=== PATIENT | female | born 1945 | race Caucasian/White ===

== ENCOUNTER 2023-05-26 16:43 | Emergency (ER) | payer MEDICARE, OTHER, SELFPAY ==
[2023-05-26] VITALS (14 sets, daily range): BP systolic 87–155; BP diastolic 40–102; PULSE 54–73; RESP 13–20; TEMP 36.3; O2SAT 93–100
--- NOTE | ~2023-05-26 | XR_ITS ---
EXAMINATION: XR chest 1V portable Exam Date/Time: 05/26/2023 17:15 EXAMINER RATING CLERK HISTORY: cp Comparison: None. RESULT: Lines, tubes, and devices: Uncomplicated left shoulder arthroplasty. Lungs and pleura: Senescent change. No focal consolidation, pleural effusion, or pneumothorax. Cardiomediastinal silhouette: Widening of the superior mediastinum is likely due to portable techniq ue and lordotic positioning and the prominent central pulmonary arteries, as can be seen with pulmona ry arterial hypertension. Apparent heart enlargement. Other: No acute osseous or upper abdominal finding. IMPRESSION: Findings suggestive of pulmonary arterial hypertension. Possible cardiomegaly. Reviewed, dictated and finalized at location K. INER RATING CLERK
--- NOTE | ~2023-05-26 | CT_ITS ---
EXAMINATION: CTA chest abdomen pelvis DATE: 05/26/2023 19:44 INDICATION: severe L CP, weakness, hypotension . TECHNIQUE: Computed tomography angiography (CTA) of the chest, abdomen, and pelvis was performed with 100 mL Omnipaque-350 intravenous contrast. Automated exposure control and iterative reconstruction t InPact.menique were employed. The dose-length product was 607.94 mGy-cm. COMPARISON: X-ray chest 05/26/2023 FINDINGS: CHEST: Thoracic aorta: Jan type A dissection beginning at the level of the aortic valve. The dissection flap extends into the brachiocephalic artery and the visualized portion of the right common carotid artery and minimally into the origin of the left common carotid artery. Lung parenchyma and airways: Mild septal thickening. Dependent scar/atelectasis.. Thoracic inlet, axillae and chest wall: No thyroid or soft tissue mass. No axillary lymphadenopathy. Mediastinum: No mass or lymphadenopathy. Prominent superior pericardial recess. Prominent central pul monary veins as can be seen with pulmonary arterial hypertension. Heart and pericardium: Mild cardiomegaly. No pericardial effusion. Suggestion of decreased subendocar dial, septal, and inferior wall enhancement. Coronary artery calcifications: Absent. Pleura: No effusion or mass. Thoracic bones: No acute osseous finding in the chest. Left shoulder arthroplasty hardware. ABDOMEN/PELVIS: Liver: Simple left lobe cyst. Biliary/Gallbladder: Gallbladder is normal. No bile duct dilation. Pancreas: No mass or duct dilation. Spleen: Wedge-shaped areas of hypoenhancement in the anterior and inferior spleen. Adrenals:Significantly decreased left adrenal enhancement. Decreased enhancement of the superior aspe ct of the right adrenal gland. Kidneys: Minimal arterial flow noted in the left kidney. Normal right kidney. GI tract: Small hiatal hernia. No small or large bowel dilation. The appendix is not confidently visu alized. Mesentery/Peritoneum: No ascites, mass, or free air. Retroperitoneum: No mass . The dissection extends into the midportion of the left external iliac arthur ry. There is at least moderate stenosis of the celiac axis, slightly decreased distal flow. Near-comp lete occlusion of the left renal artery, reconstitution of partial flow in the midportion of the arthur ry, with minimal arterial flow into the left kidney. Beaded appearance of the right mid renal artery. The dissection flap causes severe stenosis of the origin of the left common iliac artery, mildly red uced flow in the left common iliac artery, moderately reduced flow in the left external iliac artery, and left common femoral artery, and slightly reduced flow in the left internal iliac artery. Pelvis: Partially distended urinary bladder. Absent uterus. Normal ovaries. Soft Tissues: Small fat-containing uncomplicated umbilical and bilateral inguinal hernias. Abdominopelvic bones: No acute osseous finding in the abdomen/pelvis. IMPRESSION: Jan A type aortic dissection. Distally the flap appears to terminate at the midportion of the le ft external iliac artery. The dissection flap extends cephalad into the right brachiocephalic and common carotid artery, beyond the limits of the [id number]. Minimal extension into the proximal first centimeter of the left co mmon carotid artery. 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 Abnormal left ventricular muscle enhancement may represent myocardial ischemia/infarction. Mild pulmonary edema. Beaded appearance of the right renal artery as can be seen
--- NOTE | 2023-05-26 16:56 | ECG_ITS ---
Measurements Intervals [place] Rate: 52 P: 93 [place]: 82 QRS: 9 QRSD: 108 T: -50 QT: 501 QTc: 467 Interpretive Statements SINUS BRADYCARDIA LEFT VENTRICULAR HYPERTROPHY AND ST-T CHANGE CONSIDER INFERIOR INFARCT, AGE INDETERMINATE ABNORMAL ECG NO PREVIOUS ECG AVAILABLE FOR COMPARISON Electronically Signed On 05-26-2023 19:39:55 GRID TRIMMER by Robbie Ness D.O.
[2023-05-26] MEDS: SODIUM CHLORIDE 0.9% IV 1,000 ML 999 ML IV CONT (17:09)
[2023-05-26] MEDS: ASPIRIN 81 MG CHEWABLE TABLET 324 MG PO (17:20)
--- NOTE | 2023-05-26 17:34 | ED.CHESTPAIN ---
HPI - Chest Pain General Chief Complaint: Chest Pain Stated Complaint: Low BP Time Seen by Provider: 05/26/23 17:06 History of Present Illness HPI narrative: Patient is a 78-year-old female with a history of CHF, hyperlipidemia, hypertension presenting with chest pain. Patient states that she was at the grocery store when she developed severe left-sided chest pain that went into her abdomen. States that she then felt extremely weak and collapsed to the floor. She was unable to get up due to weakness so EMS was called. On arrival, she states that the pain has started to improve though it is still present. States that she has been having increased shortness of breath over the last several weeks as well as a cough. No worsening leg swelling. States she has been compliant with her Eliquis and her Lasix. She had several episodes of emesis yesterday but none today. No numbness or weakness, vision or speech changes. Related Data Allergies Allergy/AdvReac Type Severity Reaction Status Date / Time nickel Allergy Unknown redness Verified 05/26/23 16:57 Sulfa (Sulfonamide Allergy Unknown RASH/ITCHIN Verified 05/26/23 16:57 Antibiotics) G Review of Systems Review of Systems: All systems reviewed & are unremarkable except as noted in HPI and below Exam Narrative: GENERAL: Nontoxic, no acute distress, pleasant cooperative HEAD: Normocephalic, atraumatic. EYES: PERRLA and EOMI. ENT: Grossly unremarkable NECK: Supple. CHEST: Clear to auscultation. No respiratory distress. HEART: Regular rate and rhythm. ABDOMEN: Soft, nontender, nondistended EXTREMITIES: Normal range of motion. No edema. SKIN: Warm, dry, no rash. NEURO: No focal deficits. Alert and oriented x3. PSYCH: Normal mood and affect. Course Vital Signs Vital signs: Vital Signs Temperature 97.3 F L 05/26/23 16:45 Pulse Rate 54 L 05/26/23 16:45 Respiratory Rate 17 05/26/23 16:45 Blood Pressure 95/43 L 05/26/23 16:45 Pulse Oximetry 100 05/26/23 16:45 Oxygen Delivery Room Air 05/26/23 16:45 Temperature 97.3 F L 05/26/23 16:45 Pulse Rate 70 05/26/23 20:58 Respiratory Rate 14 05/26/23 20:58 Blood Pressure 155/56 H 05/26/23 20:58 Pulse Oximetry 96 05/26/23 20:58 Oxygen Delivery Room Air 05/26/23 17:00 MDM - Chest Pain MDM Narrative Medical decision making narrative: 78-year-old female presenting with chest pain and generalized weakness. Blood pressures are soft in the 90s over 40s. CTA chest abdomen pelvis shows type a dissection. Patient's heart rate is in the 70s, blood pressures are 130s to 150s. I spoke with Cardiothoracic surgery at [facility] who accepts the patient for ED to ED transfer. I spoke with Dr. Hightower in the ED who accepts the patient for transfer as well. Will start the patient on an esmolol drip with goal systolic blood pressure less than 110 and heart rate less than 60 as tolerated. Patient's last Eliquis dose was this morning, cardiothoracic surgery does not recommend reversal at this time. Patient and her family have been updated with these findings. They are agreeable with transfer to [facility]. [facility] unable to fly due to weather - pt will be transferred via [facility]. Differential Diagnosis Differential diagnosis: Likely atypical chest pain, st elevation myocardial infarction, chest pain and other ( Aortic dissection) Medical Records Data Attestation: I reviewed the patient's medical records. Lab Data Attestation: I reviewed the patient's lab results. 05/26/23 17:44 05/26/23 17:44 Labs: Lab Results 05/26/23 Range/Units 17:44 WBC 7.9 (4.5-10.0) K/mm3 RBC 4.16 L (4.2-5.4) M/mm3 Hgb 11.8 L (12.0-15.0) g/dL Hct 36.4 L (37.0-47.0) % MCV 87.5 (80-100) fl MCH 28.4 (26-34) pg MCHC 32.4 (32-36) g/dl RDW 15.3 H (11.5-14.5) % Plt Count 142 L (150-375) k/mm3 MPV 8.7 (7.4-10.4) fl Immature Gran % (Auto) 0.5 (0-0.5) % Neut % (Auto) 78.
[2023-05-26 17:55] LABS: Basophils Percent Auto 0.4 % (0.2-1.2); Eosinophils Absolute Auto 0.1 K/mm3 (0-0.3); Eosinophils Percent Auto 1.5 % (0-4.4); Hematocrit 36.4 % (37.0-47.0); Hemoglobin 11.8 g/dL (12.0-15.0); Immature Granulocyte Absolute 0.04 K/mm3 (0.00-0.031); Immature Granulocyte Percent A 0.5 % (0-0.5); Lymphocytes Absolute Auto 1.04 K/mm3 (0.9-3.2); Lymphocytes Percent Auto 13.2 % (18.3-44.2); Mean Corpuscular HGB Conc 32.4 g/dl (32-36); Mean Corpuscular Hemoglobin 28.4 pg (26-34); Mean Corpuscular Volume 87.5 fl (80-100); Mean Platelet Volume 8.7 fl (7.4-10.4); Monocytes Absolute Auto 0.5 K/mm3 (0.1-0.6); Monocytes Percent Auto 5.8 % (2.6-8.5); Neutrophils Absolute Auto 6.2 K/mm3 (1.3-6.7); Neutrophils Percent Auto 78.6 % (45.5-73.1); Platelet Count Result 142 k/mm3 (150-375); Red Blood Count 4.16 M/mm3 (4.2-5.4); Red Cell Distribution Width 15.3 % (11.5-14.5); White Blood Count 7.9 K/mm3 (4.5-10.0)
[2023-05-26 18:11] LABS: INR 1.2; Prothrombin Time 15.8 Seconds (11.1-14.7)
[2023-05-26 18:12] LABS: Partial Thromboplastin Time 31.8 SECONDS (22.3-36.8)
--- NOTE | 2023-05-26 18:14 | PC.NURSE ---
Pt daughter Alysha regarding pt status, she requests we call with updates at [phone]
[2023-05-26 18:26] LABS: Alanine Aminotransferase 14 U/L (6-35); Albumin Level 3.7 g/dL (3.5-5.1); Alkaline Phosphatase 64 U/L (38-126); Anion Gap 8 mmol/L (8-16); Aspartate Amino Transferase 22 U/L (14-36); Bilirubin,Total 0.6 mg/dL (0.2-1.3); Blood Urea Nitrogen 12 mg/dL (7-17); Calcium 8.3 mg/dL (8.4-10.2); Carbon Dioxide 24 mmol/L (22-30); Chloride 109 mmol/L (98-107); Estimated CRCL calculation 42 ml/min; Estimated Glomerular Filt Rate 54; Glucose 103 mg/dL (65-110); Lipase 134 U/L (23-300); Potassium 3.2 mmol/L (3.4-5.0); Sodium 141 mmol/L (137-145)
[2023-05-26 18:38] LABS: Troponin I < 0.012 ng/mL (0.000-0.034)
--- NOTE | 2023-05-26 19:08 | PC.NURSE ---
Assumed care of pt. Bedside report from PAT Goodwin. Pt resting quietly per cart in nad at this time.
--- NOTE | 2023-05-26 19:10 | PC.NURSE ---
Bedside report given to Miranda RN, all questions answered
[2023-05-26] MEDS: fentaNYL CITRATE INJ (*CRX) 100 MCG/2 ML VIAL 50 MCG IV PUSH ×2 (19:27→20:24)
[2023-05-26] MEDS: SIMETHICONE 80 MG TAB.CHEW PO (19:27)
[2023-05-26] MEDS: FAMOTIDINE 20 MG/2 ML VIAL IV PUSH (19:27)
[2023-05-26] MEDS: ESMOLOL HCL 2,500 MG/250 ML 2,500 MG/250 ML BAG 23.04 MG IV CONT (20:17)
--- NOTE | 2023-05-26 20:20 | PC.NURSE ---
Esmolol drip initially placed as a cont rate. Discussed with ERP to change to titrate.
--- NOTE | 2023-05-26 20:40 | PC.NURSE ---
Noted that titrate order comes with bolus. Will call pharmacy for bolus clarification.
--- NOTE | 2023-05-26 20:45 | PC.NURSE ---
Pt bp shows hypotensive. Will hold esmolol and recheck bp. Fllight crew here to take report and start loading up pt. Esmolol transferred to portable pump.
--- NOTE | 2023-05-26 21:09 | PC.NURSE ---
Report to PAT Lui at [facility] and Flight crew here to take pt to [facility] via critical care truck. Pt cont on esmolol gtt. titrating parameters discussed with flight crew RN. Pt loaded up on stretcher and ready to be transported. Remains with stable VS.
== END 2023-05-26 21:00 | disposition short-term general hospital (02) ==
LOC: ANHED 18:54
PROVIDERS: Emergency Provider Emergency Medicine; PCP Family Medicine
DX: I71.019 Dissection of thoracic aorta, unspecified (principal); E78.5 Hyperlipidemia, unspecified; I50.9 Heart failure, unspecified; I11.0 Hypertensive heart disease with heart failure; R00.1 Bradycardia, unspecified; I51.7 Cardiomegaly
CPT/HCPCS: 36415; 71045; 71275; 74174; 80053; 83690; 84484; 85025; 85610; 85730; 93005; 96361; 96365; 96375; 96376; 99285; A9270; C1751; J3010; J7030; Q9967